=== PATIENT | female | born 2000 | race Two or more races ===

== ENCOUNTER 2023-01-24 07:19 | Inpatient (IN) | payer OTHER ==
[~2023-01-24] VITALS: Ht 165.1 cm; Wt 68.0 kg
--- NOTE | 2023-01-24 07:43 | NUR ---
PACIENTE FEMINAL ALERTA Y ORIENTADA POR 3 ESFERAS REFIERE SENTIR REGINO DOLOR ABDOMINAL IRRADIANDOSE EN EL LADO NII DE LA ESPALDA DESDE TINO EN LA MANANA, SE MIDEN S/V, SE OBSERVA PULSO ELEVADO, SE VENU COMPRESA DE HIELO Y SE REALIZA EKG Y SE PRESENTA A DR. BROOKS, SE UBICA PACIENTE.
--- NOTE | 2023-01-24 09:16 | NUR ---
SE ORIENTA PTE SOBRE TX A SEGUIR,EL CUAL REFIERE ENTENDER. SE COLECTAN MUESTRAS Y SE CANALIZA PTE UTILIZANDO MEDIDAS ASEPTICAS. SE ADM. MEDICAMENTOS JARED ORDEN MEDICA.
== END 2023-01-29 17:20 | disposition home or self-care (01) | DRG 690 ==
LOC: ER 07:19 → EDBD 09:25 → MEDI 17:50
PROVIDERS: Emergency Medicine; General Practice; ADMIT Specialist; ATTEND Specialist
PROC: BW21ZZZ Computerized Tomography (CT Scan) of Abdomen and Pelvis (ICD-10-PCS; principal; 2023-01-24)
DX: N39.0 Urinary tract infection, site not specified (principal); B96.29 Other Escherichia coli [E. coli] as the cause of diseases classified elsewhere; D72.828 Other elevated white blood cell count; N12 Tubulo-interstitial nephritis, not specified as acute or chronic